=== PATIENT | male | born 1945 | race Hispanic/Latino ===

== ENCOUNTER 2024-08-07 05:40 | Observation (INO) | payer MEDICARE, OTHER ==
[2024-08-01 10:32] LABS: BASOPHILS # (AUTO) 0.01 K/uL (0.00-0.20); BASOPHILS % (AUTO) 0.2 % (0.0-5.0); EOSINOPHILS # (AUTO) 0.17 K/uL (0.00-0.70); HEMATOCRIT 43.9 % (42-54); IMMATURE GRANULOCYTE ABSOLUTE 0.02 K/uL (0-1); LYMPHOCYTES # (AUTO) 1.3 K/uL (1.0-4.8); LYMPHOCYTES % (AUTO) 22.8 % (21.0-51.0); MEAN CORPUSCULAR HEMOGLOBIN 29.7 pg (27.0-33.0); MEAN CORPUSCULAR HGB CONC 32.6 g/dL (32.0-36.0); MEAN CORPUSCULAR VOLUME 91.3 fL (79-99); MONOCYTES # (AUTO) 0.3 K/uL (0.1-1.0); MONOCYTES % (AUTO) 4.4 % (3.0-13.0); NEUTROPHILS # (AUTO) 3.9 K/uL (1.8-7.7); NEUTROPHILS % (AUTO) 69.2 % (40.0-77.0); PLATELET COUNT (AUTO) 198 K/uL (130-400); RED BLOOD CELL COUNT(AUTO) 4.81 MIL/uL (4.50-6.20); RED CELL DISTRIBUTION WIDTH 13.2 % (11.0-15.5); WHITE BLOOD COUNT (AUTO) 5.7 K/uL (4.8-10.8)
--- NOTE | 2024-08-01 10:33 | EKG ---
[facility] Test Date: 2024-08-01 Test Time: 10:25:18 Pat Name: BRITNI MARLOW Department: [facility] Room: Gender: M Mother Baby Rn: [id number] : 1945 Requested By: PEYTON VARGAS Order Number: [id number] Reading MD: Kishore Martinez Measurements Intervals [place] Rate: 54 P: -2 CA: 169 QRS: 25 QRSD: 124 T: 31 QT: 439 QTc: 417 Interpretive Statements Sinus rhythm IVCD, consider RBBB No previous ECG available for comparison Electronically Signed On 08-04-2024 18:29:07 CDT by Kishore Martinez Please click the below link to view image of tracing.
[2024-08-01 10:41] VITALS: BP 147/65; PULSE 60; RESP 18; TEMP 98.1
[2024-08-01 10:42] LABS: INR 1.06 (0.85-1.15); PROTHROMBIN TIME 11.2 SEC (9.6-11.6)
[2024-08-01 10:44] LABS: ALBUMIN 3.7 g/dL (3.5-5.0); CREATININE 0.9 mg/dL (0.5-1.3); PARTIAL THROMBOPLASTIN TIME 27.8 SEC (26.3-35.5); POTASSIUM 4.5 mmol/L (3.5-5.1)
--- NOTE | 2024-08-06 09:49 | NUR ---
report dr recinos reviewed ekg. ok to proceed
[~2024-08-07] VITALS: Ht 170.2 cm; Wt 105.7 kg
[2024-08-07] VITALS (26 sets, daily range): BP systolic 106–144; BP diastolic 50–85; PULSE 52–88; RESP 14–20; TEMP 97.2–98; O2SAT 96–98
[~2024-08-07 05:40] MED LIST: OMEP-420 PO
[2024-08-07] MEDS: LACTATED RINGERS 1000ML 1,000 ML IV ONE (06:35)
[2024-08-07] MEDS: ceFAZolin SODIUM 2 GM VIAL ONE (06:35)
[2024-08-07] MEDS: FAMOTIDINE 20MG VIAL IV ONE (06:38)
[2024-08-07] MEDS: acetaMINOPHEN 100 ML ONE (06:38)
[2024-08-07] MEDS ORDERED: ROPivacaine 0.5% 5MG/ML 30ML ONE (06:40)
[2024-08-07] MEDS ORDERED: ketaMINE 50MG/ML SYRINGE 50 MG/ML DISP.SYRIN ONE (06:40)
[2024-08-07] MEDS ORDERED: LIDOCAINE PF 100MG/5ML (2%) SYRINGE 5ML ONE (06:47)
[2024-08-07] MEDS ORDERED: FENTanyl CITRate PF 50 MCG/1 ML 2ML VIAL ONE (06:48)
[2024-08-07] MEDS ORDERED: proPOFol 10 MG/ML 20ML VIAL IV ONE (06:48)
[2024-08-07] MEDS ORDERED: rocuRONium bROMide 10MG/1ML 5ML VL ONE (06:48)
[2024-08-07] MEDS ORDERED: ondanSETRON 4MG INJ ONE (07:18)
[2024-08-07] MEDS ORDERED: dexaMETHasone SOD PHOSPHATE 10MG/ML 1ML VIAL ONE (07:18)
[2024-08-07] MEDS: TRANEXAMIC ACID 1000MG/10ML ONE (07:25)
[2024-08-07] MEDS ORDERED: GLYCOPYRROLATE 0.2 MG/ML 5 ML VIAL ONE (07:27)
[2024-08-07] MEDS ORDERED: NEOSTIGMINE METHYLSULFATE 1MG/ML IV ONE (07:28)
[2024-08-07] MEDS: 0.9%NACL 1000ML 1,000 ML IV SCH (07:30)
[2024-08-07] MEDS ORDERED: PoTASSium chl 10% ELIXIR 20MEQ 20 MEQ/15 ML UDCUP PO PRN (07:30)
[2024-08-07] MEDS ORDERED: ondanSETRON 4MG INJ IVP PRN (07:30)
[2024-08-07] MEDS ORDERED: FERROUS FUMARATE 324 MG TABLET PO PRN (07:30)
[2024-08-07] MEDS ORDERED: traMADol HCL 50 MG TABLET PO PRN (07:30)
[2024-08-07] MEDS ORDERED: PoTASSium chloRIDE 20MEQ ER 20 MEQ ERTAB PO PRN (07:30)
[2024-08-07] MEDS ORDERED: PoTASSium chloRIDE 20MEQ/100ML 100 ML IV PRN (07:30)
[2024-08-07] MEDS: ROPivacaine 0.5% 5MG/ML 30ML ONE (08:52)
[2024-08-07] MEDS: ketOROlac 30MG VIAL (30MG/ML) ONE (08:52)
--- NOTE | 2024-08-07 09:34 | OP ---
Operative Note: DATE OF PROCEDURE: 08/07/24 PREOPERATIVE DIAGNOSIS: Left knee osteoarthritis. POSTOPERATIVE DIAGNOSIS: Left knee osteoarthritis. PROCEDURE PERFORMED: Left knee total knee arthroplasty. SURGEON: Monica Galloway MD INTRUSION ANALYST: Henry Victor. ANESTHESIA: General with adductor canal block. ANESTHESIA: LUKAS Muniz. ESTIMATED BLOOD LOSS: 50cc. COMPLICATIONS: None. DRAINS: None. SPECIMENS REMOVED: resected bone. Not sent to pathology. IMPLANTS: [employer] II BCS size 7 Oxinium femur, size 6 tibial base plate, 35 mm patella, 11 mm polyethylene STATEMENT OF MEDICAL NECESSITY: The patient is a 78-year-old male who suffers from left knee osteoarthritis failing conservative management. After discussion of the risks, benefits, and alternatives with the patient, they voluntarily agreed to undergo the aforementioned procedure. DESCRIPTION OF PROCEDURE: Patient was properly identified in the preoperative holding area. Surgical site marking was verified and surgery consent reviewed. The patient was then taken to the operating room and placed in supine position o n the OR table. After induction of general anesthesia, preoperative antibiotics were given, all bony prominences were well-padded, and a well padded tourniquet was applied but not inflated at this time. The left lower extremity was then prepped and draped in usual sterile fashion. Surgical time out was done verifying correct surgery, side, site, and location to be performed. We then began the procedure by exsanguinating the limb using an Esmarch and inflating the tourniquet to 350 mmHg. At this point, we made an anterior midline incision using a 10 blade, coming down sharply the level of the fascia. Skin flaps were elevated medially and laterally. We then obtained a clean 10 blade and performed a standard medial parapatellar arthrotomy. We excised the infrapatellar fat pad. We performed our soft tissue releases off of the tibia. We transected the ACL and removed the anterior portion of the medial & lateral meniscus. We then brought the knee into hyperflexion with the patella everted. We used our entry reamer to enter the femoral canal. We then placed our intramedullary cutting guide for our distal femoral cutting block. We then performed our distal femoral osteotomy ensuring appropriate rotation and removed the bony wafer. We then removed these pins and block and then used jig 2 to size the distal femur with the after mentioned size found. We then placed our 5-in-1 cutting block in 4.5 degrees of external rotation and took our 5 cuts ensuring to protect the patellar tendon and the collateral ligaments. We then removed the cutting block and our bony fragments using a curved osteotome. We then placed our PCL retractor subluxating the tibia anteriorly. Using an extra medullary tibial cutting guide, we hung the block for our proximal tibial cut taking 2 mm off the more diseased portion. Prior to pinning this block in place, we ensured appropriate varus/valgus alignment and posterior slope similar to the [place] slope of the patient's knee. We then performed our proximal tibial osteotomy and removed the bony wafer using Bovie electrocautery to release any remaining soft tissue attachments. We then used our tibial sizing paddle and checked once more for varus & valgus alignment and found this to be appropriate. At this point, we pinned our tibial paddle in place. We then removed the PCL retractor and subluxated the tibia posteriorly while we placed our femoral trial component. We then finished preparing the notch with the reamer and box chisel. The notch portion of the trial femoral component was then placed. A posterior stabilized polyethylene, size 9 trial was placed. The knee was then taken through range of motion and found to have stable full range of motion. We then placed a bump under the ankle and everted the patella to perform our freehand cut of the undersurface the patella. We then sized our patella and reamed to the lug holes for this. We placed our trial patellar component and begin to take the knee through range of motion. The patella had mild lateral tracking that improved a for a small lateral release. At this point we began removing our trial components and punched the tibial keel prior to removing our tibial trial component. Final components were opened and cement was mixed on the back table while we injected local cocktail in the posterior capsule. We then thoroughly irrigated out the bone and dried the bony surfaces. We cemented our tibial component in place ensuring to remove excess cement and placed our trial polyethylene. We then cemented our femoral component in place once again taking time to ensure excess cement was removed leg was brought into full extension to help squeeze the excess cement from around the femoral component. We then brought the knee back in a flexion to remove this portion of the cement at this point we placed the ankle in a bump thoroughly irrigated off the patellar component and cemented our patellar component in standard fashion again removing excess cement. While we waited for the cement to cure, we thoroughly irrigated out the wound with normal saline. Once our cement had cured, we took the knee through a range of motion and found full and stable range of motion. We then elected to use the size 11 polyethylene and removed our trial polyethylene. We impacted our final polyethylene component in place in standard fashion and took the knee through a range of motion check once more. This was satisfactory so we began to repair the arthrotomy using #1 Vicryl in interrupted [id number] fashion. Subcutaneous tissue was repaired using 2-0 Vicryl. Running subcuticular 3-0 Monocryl stitch with Dermabond placed over this for the skin. We then applied a foam barrier dressing and a pressure dressing consisting of 4 x 4's fluffs and an Thony wrap. The tourniquet was then deflated. Patient was awakened from anesthesia, and they were taken to the recovery room in stable condition. MONICA GALLOWAY MD Aug 07, 2024 09:34
[2024-08-07] MEDS: ketOROlac 15MG/ML VIAL (15MG/ML) IV SCH (10:01)
[2024-08-07] MEDS: ketOROlac 15MG/ML VIAL (15MG/ML) ONE (10:03)
--- NOTE | 2024-08-07 10:18 | HMCIMG ---
LEFT KNEE RADIOGRAPHS - 2 VIEWS INDICATION: History provided states "right knee total arthroplasty" and images are labeled left by the forest fire officer. COMPARISON: None FINDINGS/IMPRESSION: AP, lateral views. History provided states "right knee total arthroplasty" and images are labeled left by the forest fire officer. Arthroplasty hardware is in appropriate alignment and overlying soft tissue swelling/air are expected after surgery without evidence for retained foreign body.
[2024-08-07] MEDS: PANTOPrazole 40 MG TAB DR PO SCH (11:57)
[2024-08-07] MEDS: polyETHYLene GLYCol 3350 17 GM POWD.PACK PO SCH (11:57)
[2024-08-07] MEDS: GABApentin 100 MG CAPSULE PO SCH (11:57)
[2024-08-07] MEDS: doCUSate SODIUM 100 MG CAP PO SCH (11:57)
[2024-08-07] MEDS: ceFAZolin SODIUM 2 GM VIAL IVP SCH (11:57)
--- NOTE | 2024-08-07 16:30 | NUR ---
DCP Pt awake, alert, oriented X3 lives with spouse Kim Reed [phone]. PCP is Silverio Choe from the [place]. Pt is independent prior to admission, does not have any medical equipment, and anticipates discharge is for home with . Addendum: 08/07/24 at 1633 by CAM TOBAR RN CM Amended: Links added.
--- NOTE | 2024-08-07 16:30 | NUR ---
ORTHO COORDINATOR: TEACHING REGARDING DVT AND PNEUMONIA PREVENTION, PAIN EXPECTATIONS, PAIN MANAGEMENT. PATIENT UP TO CHAIR, AT BEDSIDE. B SCD SLEEVES AND MACHINE IN ROOM. INCENTIVE SPIROMETER AT BEDSIDE. PATIENT RETURN DEMONSTRATED PROPER USE OF INCENTIVE SPIROMETER AND FOOT FLEXION/EXTENSION EXERCISES. PATIENT VERBALIZED TO PERFORM 10 TIMES EVERY HOUR. DISCUSSED DISCHARGED, PATIENT INTENDS TO GO HOME WITH PHYSICAL THERAPY. NEEDS WALKER AND 3-1- COMMODE. REVIEWED NUMERIC PAIN SCALE. PATIENT INSTRUCTED MUST REQUEST PAIN MEDICATION AND TO PROVIDE NUMERIC LEVEL AND TYPE OF PAIN. PAIN EXPECTATIONS REALISTIC. NO ADDITIONAL CONCERNS/QUESTIONS AT THIS TIME.
[2024-08-08] VITALS: BP 126/70; PULSE 64; RESP 20; TEMP 98.3
--- NOTE | 2024-08-08 02:47 | NUR ---
nurse note patient alert and oriented times 3. at bedside. plan of care discussed with them and they verbalized understanding. patient has some left knee pain tonight relieved by pain medications. He calls for assistance to go to the toilet when he needs to have a bowel movement. He ambulates with a walker and walks fast without complaining of pain. He voids on the urinal and toilet as well. Eriberto applied to right leg tonight. Patient has slept about 6 hours tonight. ice packs applied to left knee per protocol. Call light within reach, bed alarm on, 2 side rails up. will continue to monitor patient. will take the patient to the chair in the am as ordered.
[2024-08-08 04:00] VITALS: BP 126/74; PULSE 69; RESP 19; TEMP 98.3
[2024-08-08 04:43] LABS: HEMATOCRIT 35.8 % (42-54); MEAN CORPUSCULAR HEMOGLOBIN 30.2 pg (27.0-33.0); MEAN CORPUSCULAR HGB CONC 32.7 g/dL (32.0-36.0); MEAN CORPUSCULAR VOLUME 92.5 fL (79-99); RED BLOOD CELL COUNT(AUTO) 3.87 MIL/uL (4.50-6.20); RED CELL DISTRIBUTION WIDTH 13.1 % (11.0-15.5); WHITE BLOOD COUNT (AUTO) 10.3 K/uL (4.8-10.8)
[2024-08-08 04:55] LABS: CREATININE 0.9 mg/dL (0.5-1.3); POTASSIUM 3.9 mmol/L (3.5-5.1)
[2024-08-08] MEDS: CYCLOBENZAPRINE HCL 10 MG TABLET PO PRN (05:58)
[2024-08-08] MEDS: CALCIUM CARB 500MG PO PRN (05:58)
[2024-08-08] MEDS: HYDROcodone/APAP 5/325 1 TAB TABLET PO PRN (06:55)
[2024-08-08] MEDS ORDERED: ketOROlac 15MG/ML VIAL (15MG/ML) IV PRN (07:30)
[2024-08-08 08:00] VITALS: BP 127/52; PULSE 79; RESP 20; TEMP 97.8
[2024-08-08 08:45] VITALS: O2SAT 97
[2024-08-08] MEDS: ASPIRIN 325MG EC TAB PO SCH (08:49)
--- NOTE | 2024-08-08 09:20 | PN ---
Ortho postop day one. Patient is awake alert and oriented. is present. He has already seated out of bed enjoying his breakfast. Thony bandage has already been removed. The dressing is intact anteriorly. There is no footstool available in the room but I did instruct him that they will get her in for him later and he is to alternate extension and flexion while seated. Vital signs have been stable. He is afebrile. Laboratory results reviewed. Noted to have a drop in hemoglobin and hematocrit as expected after TKA. Patient is asymptomatic. We will continue to observe as necessary for protocol. Voiding on his own without difficulty and has already had a bowel movement this morning. In forced incentive spirometry and returned demonstration adequate. He currently has ice present to the operative site. He did ambulate yesterday with physical therapy down the crespo and in his room. Gastrocnemius a soft nontender. Negative Homans. DC plan for this patient is home health/PT. Assessment: Status post left total knee arthroplasty Asymptomatic acute postoperative blood loss anemia. Plan: Continue with Dr. Galloway's TKA protocol and discharge planning. Asymptomatic acute postoperative blood loss anemia addressed protocol as necessary Vitals/Labs Vital Signs Date Time Temp Pulse Resp B/P (MAP) Pulse Ox O2 Delivery O2 Flow Rate FiO2 08/08/24 08:00 97.9 79 20 127/52 97 Room Air 08/07/24 19:20 0 21 Laboratory Tests 08/08/24 04:35 Medications Current Medications Cefazolin Sodium 2 gm STK-MED ONCE .ROUTE Last administered on 08/07/24at 07:20; Start 08/07/24 at 06:09; Stop 08/07/24 at 06:09; Status DC Ketorolac Tromethamine 30 mg STK-MED ONCE .ROUTE Last administered on 08/07/24at 08:52; Start 08/07/24 at 06:33; Stop 08/07/24 at 06:33; Status DC Ropivacaine 150 mg STK-MED ONCE .ROUTE Last administered on 08/07/24at 08:52; Start 08/07/24 at 06:33; Stop 08/07/24 at 06:33; Status DC Lactated Ringer's 1,000 ml @ As Directed STK-MED ONCE IV Last administered on 08/07/24at 06:35; Start 08/07/24 at 06:34; Stop 08/07/24 at 06:34; Status DC Acetaminophen 100 ml @ As Directed STK-MED ONCE .ROUTE; Start 08/07/24 at 06:38; Stop 08/07/24 at 06:38; Status DC Famotidine 20 mg STK-MED ONCE IV; Start 08/07/24 at 06:38; Stop 08/07/24 at 06:38; Status DC Ropivacaine 150 mg STK-MED ONCE .ROUTE; Start 08/07/24 at 06:40; Stop 08/07/24 at 06:40; Status DC Ketamine HCl 50 mg STK-MED ONCE .ROUTE; Start 08/07/24 at 06:40; Stop 08/07/24 at 06:40; Status DC Lidocaine HCl 100 mg STK-MED ONCE .ROUTE; Start 08/07/24 at 06:47; Stop 08/07/24 at 06:48; Status DC Propofol 200 mg STK-MED ONCE IV; Start 08/07/24 at 06:48; Stop 08/07/24 at 06:48; Status DC Rocuronium [place] 50 mg STK-MED ONCE .ROUTE; Start 08/07/24 at 06:48; Stop 08/07/24 at 06:48; Status DC Fentanyl Citrate 100 mcg STK-MED ONCE .ROUTE; Start 08/07/24 at 06:48; Stop 08/07/24 at 06:48; Status DC Tranexamic Acid 1,000 mg STK-MED ONCE .ROUTE Last administered on 08/07/24at 07:25; Start 08/07/24 at 06:59; Stop 08/07/24 at 07:00; Status DC Ondansetron HCl 4 mg STK-MED ONCE .ROUTE; Start 08/07/24 at 07:18; Stop 08/07/24 at 07:19; Status DC Dexamethasone Sodium Phosphate 10 mg STK-MED ONCE .ROUTE; Start 08/07/24 at 07:18; Stop 08/07/24 at 07:19; Status DC Glycopyrrolate 1 mg STK-MED ONCE .ROUTE; Start 08/07/24 at 07:27; Stop 08/07/24 at 07:27; Status DC Neostigmine Methylsulfate 10 mg STK-MED ONCE IV; Start 08/07/24 at 07:28; Stop 08/07/24 at 07:28; Status DC Sodium Chloride 1,000 ml @ 100 mls/hr Q10H IV Last administered on 08/07/24at 20:16; Start 08/07/24 at 07:30; Stop 08/08/24 at 03:27; Status DC Polyethylene Glycol 17 gm DAILY PO Last administered on 08/08/24at 08:50; Start 08/07/24 at 09:00; Stop 09/06/24 at 08:59 Bisacodyl 10 mg DAILY PRN RC; Start 08/10/24 at 07:30; Stop 09/09/24 at 07:29 Ketorolac Tromethamine 15 mg Q6H PRN IV; Start 08/08/24 at 07:30; Stop 08/13/24 at 07:29 Ferrous Fumarate 324 mg DAILY PRN PO; Start 08/07/24 at 07:30; Stop 09/06/24 at 07:29 Ondansetron HCl 4 mg Q6H PRN IVP; Start 08/07/24 at 07:30; Stop 09/06/24 at 07:29 Calcium Carbonate 500 mg Q12H PRN PO Last administered on 08/08/24at 05:58; Start 08/07/24 at 07:30; Stop 09/06/24 at 07:29 Cefazolin Sodium 2 gm Q8H IVP Last administered on 08/07/24at 20:16; Start 08/07/24 at 12:30; Stop 08/07/24 at 20:31; Status DC Cyclobenzaprine HCl 5 mg Q8H PRN PO Last administered on 08/08/24at 05:58; Start 08/07/24 at 07:30; Stop 09/06/24 at 07:29 Gabapentin 100 mg TID PO Last administered on 08/08/24at 08:50; Start 08/07/24 at 09:00; Stop 09/06/24 at 08:59 Aspirin 325 mg DAILY PO Last administered on 08/08/24at 08:49; Start 08/08/24 at 09:00; Stop 09/07/24 at 08:59 Ketorolac Tromethamine 15 mg Q8H IV Last administered on 08/07/24at 20:17; Start 08/07/24 at 07:30; Stop 08/07/24 at 23:31; Status DC Docusate Sodium 100 mg BID PO Last administered on 08/08/24at 08:49; Start 08/07/24 at 09:00; Stop 09/06/24 at 08:59 Potassium Chloride 100 ml @ 100 mls/hr AD PRN IV; Start 08/07/24 at 07:30; Stop 09/06/24 at 07:29 Potassium Chloride 20 meq AD PRN PO; Start 08/07/24 at 07:30; Stop 09/06/24 at 07:29 Potassium Chloride 20 meq AD PRN PO; Start 08/07/24 at 07:30; Stop 09/06/24 at 07:29 Tramadol HCl 50 mg Q6H PRN PO; Start 08/07/24 at 07:30; Stop 08/12/24 at 07:29 Acetaminophen/ Hydrocodone Bitart Q4H PRN PO Last administered on 08/08/24at 06:55; Start 08/07/24 at 07:30; Stop 08/12/24 at 07:29 Pantoprazole Sodium 40 mg DAILY PO Last administered on 08/08/24at 08:49; Start 08/07/24 at 09:00; Stop 09/06/24 at 08:59 Ketorolac Tromethamine 15 mg STK-MED ONCE .ROUTE; Start 08/07/24 at 09:59; Stop 08/07/24 at 09:59; Status BHAKTI POWELL NP Aug 08, 2024 09:20
[2024-08-08 11:58] VITALS: BP 130/64; PULSE 68; RESP 18; TEMP 99.3
[2024-08-08] MEDS ORDERED: HYDR-4060 PO (15:12)
[2024-08-08] MEDS ORDERED: ASPI-891 PO (15:12)
[2024-08-08] MEDS ORDERED: CYCL-309 PO (15:12)
[2024-08-08] MEDS ORDERED: DOCU-116 PO (15:12)
[2024-08-08] MEDS ORDERED: GABA100C PO (15:12)
--- NOTE | 2024-08-08 15:16 | DS ---
Discharge Summary Hospital Course Summary: The patient was admitted to the hospital postoperatively on 08/07/24 after undergoing left total knee arthroplasty. They did well with routine postoperative pain control. They worked well with physical therapy. They developed some acute blood loss anemia but remained asymptomatic. The hospital course was otherwise uncomplicated. They were subsequently able to be discharged on postoperative day 1 once discharge arrangements were made with home health physical therapy. Domestic Maid(s): None Procedure(s): Left total knee arthroplasty, 08/07/2024 Assessment/Plan: ASSESSMENT: Status post left total knee arthroplasty doing well Acute blood loss anemia asymptomatic PLAN: See discharge instructions Discharge Instructions: Begin working with Home Health physical therapy. Dressing may be removed 08/09/2024 and left open to air. Showers ok allowing soap and water to run over the wound. Pat dry. Do not submerge wound in tub/pool. Do not apply ointments. Do not apply Betadine. Do not apply peroxide. Ice packs to decrease pain/swelling. Prescriptions have been sent to the pharmacy: *Kathleen 5/325mg 1-2 tab every 6 hours as needed for severe pain. (please call for refills) Cyclobenzaprine 5mg 1 tab every 8 hours as needed for muscle spasm pain. Gabapentin 100mg 1 tab every 8 hours (may discontinue if drowsy). Colace 100mg 1 tab orally twice a day as needed for constipation. Aspirin 325mg twice a day for 30 days to prevent blood clots. Call for a follow-up appointment in 2-3 weeks at [facility]. Home Medications: Active Scripts Hydrocodone/Acetaminophen (Hydrocodon-Acetaminophen 5-325) 5 Mg-325 Mg Tablet, 1-2 TAB PO Q4H PRN for MODERATE/SEVERE PAIN LEVEL, #56 TAB 0 Refills Prov:PEYTON VARGAS MD 08/08/24 Reported Medications Omeprazole (Omeprazole) 20 Mg Tab.rap, 20 MG PO AM 08/01/24 PEYTON VARGAS MD Aug 08, 2024 15:16
--- NOTE | 2024-08-08 15:45 | NUR ---
ORTHO COORDINATOR: REINFORCED TEACHING. PATIENT IN BED, AT BEDSIDE. ENCOURAGED PATIENT TO CONTINUE INCENTIVE SPIROMETRY, FOOT FLEXION/EXTENSION EXERCISES AND MEDICATING PRIOR TO PHYSICAL THERAPY ONCE DISCHARGED. PATIENT AND VERBALIZED UNDERSTANDING. WALKER DELIVERED TO ROOM, PATIENTS REPORTS PURCHASING A TOILET EXTENSION DEVICE. NO ADDITIONAL QUESTIONS/CONCERNS AT THIS TIME.
--- NOTE | 2024-08-08 18:00 | NUR ---
report given to samina ulloa from [facility].
--- NOTE | 2024-08-08 18:15 | NUR ---
DC NOTE DC INSTRUCTIONS AND FOLLOW UP APPOINTMENT GIVEN TO PT AND SPOUSE ALONG WITH [facility] OPTIFOAM IN PLACED PER DR. VARGAS'S INSTRUCTIONS TO BE REMOVE 08/09/24. NO S/S OF INFECTION AT INCISION SITE. PIV REMOVED, CATHETER INTACT, DENIES ANY PAIN OR DISCOMFORT AT THIS TIME. PT IS WHEELED DOWNSTAIRS WITH HEMODIALYSIS PATIENT CARE SPECIALIST INTO VIA PRIVATE CAR. NO FURTHER COMMENTS OR CONCERN AT THIS TIME.
[2024-08-10] MEDS ORDERED: BisaCODYL 10 MG SUPP.RECT RC PRN (07:30)
== END 2024-08-08 18:15 | disposition home or self-care (01) ==
LOC: DAH 05:40 → DAHIP 05:41 → 4DH 10:45
PROVIDERS: ADMIT Student in an Organized Health Care Education/Training Program; ATTEND Student in an Organized Health Care Education/Training Program
DX: M17.12 Unilateral primary osteoarthritis, left knee (principal); G89.18 Other acute postprocedural pain; D62 Acute posthemorrhagic anemia; K21.9 Gastro-esophageal reflux disease without esophagitis; R26.89 Other abnormalities of gait and mobility; E78.5 Hyperlipidemia, unspecified; Z98.890 Other specified postprocedural states; Z79.899 Other long term (current) drug therapy
CPT/HCPCS: 82040; 80048 ×2; 85025; 85610; 85730; 84134; 86140; 36415 ×2; 93005; 87641; 64447; 27447; 96376; 96365; 96366 ×2; 96375; 73560; 97161; 97116 ×3; 85027; 97530 ×2; G0378 ×30; A4663; J7120; J3490 ×5; J3010; J1100; J2003; J2704; J2405; J1885 ×4; J2710; J2795 ×2; J0690 ×3; C1713 ×2; C1776 ×2; A4649 ×2; A4930 ×3; A6255; A5120; A4215; A4223; A4222; A4221

== ENCOUNTER 2025-02-26 08:10 | Observation (INO) | payer OTHER ==
[2025-02-24 10:47] VITALS: BP 132/66; PULSE 54; RESP 13; TEMP 98.1
--- NOTE | 2025-02-24 11:17 | NUR ---
RE: IS INITIAL IS INITIAL TEACHING DONE BY RT RUDI DURING PREOP.
--- NOTE | 2025-02-24 12:20 | EKG ---
[facility] Test Date: 2025-02-24 Test Time: 10:29:11 Pat Name: BRITNI MARLOW Department: [facility] Room: Gender: M Acidizer: [id number] : 1945 Requested By: PEYTON VARGAS Order Number: [id number] Reading MD: Antonia Callahan Measurements Intervals [place] Rate: 51 P: 17 ME: 185 QRS: -1 QRSD: 130 T: 45 QT: 451 QTc: 414 Interpretive Statements Sinus rhythm Right bundle branch block Compared to ECG 08/01/2024 10:25:18 No significant changes Electronically Signed On 02-25-2025 16:11:15 CDT by Antonia Callahan Please click the below link to view image of tracing.
--- NOTE | 2025-02-25 10:25 | NUR ---
REPORT DR HORN REVIEWED EKG. OK TO PROCEED
[~2025-02-26] VITALS: Ht 170.2 cm; Wt 106.6 kg
[2025-02-26] VITALS (20 sets, daily range): BP systolic 120–142; BP diastolic 64–78; PULSE 65–84; RESP 14–20; TEMP 97.5–98.2; O2SAT 94–96
[2025-02-26] MEDS: LACTATED RINGERS 1000ML 1,000 ML IV ONE (09:06)
[2025-02-26] MEDS ORDERED: LIDOCAINE HCL MPF 1% 5ML VIAL ONE (10:03)
[2025-02-26] MEDS ORDERED: NEOSTIGMINE METHYLSULFATE 1MG/ML IV ONE (10:04)
[2025-02-26] MEDS ORDERED: MIDAZOLAM HCL 1 MG/ML 2ML VIAL ONE (10:04)
[2025-02-26] MEDS ORDERED: GLYCOPYRROLATE 0.2 MG/ML 5 ML VIAL ONE (10:04)
[2025-02-26] MEDS: TRANEXAMIC ACID 1000MG/10ML ONE (11:10)
[2025-02-26] MEDS: TRANEXAMIC ACID 1000MG/10ML IV ONE ×2 (13:15)
--- NOTE | 2025-02-26 13:17 | OP ---
Operative Note: DATE OF PROCEDURE: 02/26/25 PREOPERATIVE DIAGNOSIS: Right knee osteoarthritis. POSTOPERATIVE DIAGNOSIS: Right knee osteoarthritis. PROCEDURE PERFORMED: Right knee total knee arthroplasty. SURGEON: Monica Galloway MD ALMOND PAN FINISHER: Henry Victor and Marcy Posey. ANESTHESIA: General with adductor canal block. ANESTHESIA: LUKAS Phelps. ESTIMATED BLOOD LOSS: 50cc. COMPLICATIONS: None. DRAINS: None. SPECIMENS REMOVED: resected bone. Not sent to pathology. IMPLANTS: [employer] II BCS size 7 Oxinium femur, size 5 tibial base plate, 35 mm patella, 10 mm polyethylene STATEMENT OF MEDICAL NECESSITY: The patient is a 79-year-old male who suffers from right knee osteoarthritis failing conservative management. After discussion of the risks, benefits, and alternatives with the patient, they voluntarily agreed to undergo the aforementioned procedure. DESCRIPTION OF PROCEDURE: Patient was properly identified in the preoperative holding area. Surgical site marking was verified and surgery consent reviewed. The patient was then taken to the operating room and placed in supine position on the OR table. After induction of general anesthesia, preoperative antibiotics were given, all bony prominences were well-padded, and a well padded tourniquet was applied but not inflated at this time. The right lower extremity was then prepped and draped in usual sterile fashion. Surgical time out was done verifying correct surgery, side, site, and location to be performed. We then began the procedure by exsanguinating the limb using an Esmarch and inflating the tourniquet to 350 mmHg. At this point, we made an anterior midline incision using a 10 blade, coming down sharply the level of the fascia. Skin flaps were elevated medially and laterally. We then obtained a clean 10 blade and performed a standard medial parapatellar arthrotomy. We excised the infrapatellar fat pad. We performed our soft tissue releases off of the tibia. We transected the ACL and removed the anterior portion of the medial & lateral meniscus. We then brought the knee into hyperflexion with the patella everted. We used our entry reamer to enter the femoral canal. We then placed our intramedullary cutting guide for our distal femoral cutting block. We then performed our distal femoral osteotomy ensuring appropriate rotation and removed the bony wafer. We then removed these pins and block and then used jig 2 to size the distal femur with the after mentioned size found. We then placed our 5-in-1 cutting block in 4 degrees of external rotation and took our 5 cuts ensuring to protect the patellar tendon and the collateral ligaments. We then removed the cutting block and our bony fragments using a curved osteotome. We then placed our PCL retractor subluxating the tibia anteriorly. Using an extra medullary tibial cutting guide, we hung the block for our proximal tibial cut taking 2 mm off the more diseased portion. Prior to pinning this block in place, we ensured appropriate varus/valgus alignment and posterior slope similar to the [place] slope of the patient's knee. We then performed our proximal ti bial osteotomy and removed the bony wafer using Bovie electrocautery to release any remaining soft tissue attachments. We then used our tibial sizing paddle and checked once more for varus & valgus alignment and found this to be appropriate. At this point, we pinned our tibial paddle in place. We then removed the PCL retractor and subluxated the tibia posteriorly while we placed our femoral trial component. We then finished preparing the notch with the reamer and box chisel. The notch portion of the trial femoral component was then placed. A posterior stabilized polyethylene, size 9 trial was placed. This was increased up to a size 10 due to laxity with varus and valgus stressing. The knee was then taken through range of motion and found to have stable full range of motion. We then placed a bump under the ankle and everted the patella to perform our freehand cut of the undersurface the patella. We then sized our patella and reamed to the lug holes for this. We placed our trial patellar component and begin to take the knee through range of motion. The patella had appropriate tracking. At this point we began removing our trial components and punched the tibial keel prior to removing our tibial trial component. Final components were opened and cement was mixed on the back table while we injected local cocktail in the posterior capsule. We then thoroughly irrigated out the bone and dried the bony surfaces. We cemented our tibial component in place ensuring to remove excess cement and placed our trial polyethylene. We then cemented our femoral component in place once again taking time to ensure excess cement was removed leg was brought into full extension to help squeeze the excess cement from around the femoral component. We then brought the knee back in a flexion to remove this portion of the cement at this point we placed the ankle in a bump thoroughly irrigated off the patellar component and cemented our patellar component in standard fashion again removing excess cement. While we waited for the cement to cure, we thoroughly irrigated out the wound with normal saline. Once our cement had cured, we took the knee through a range of motion and found full and stable range of motion. We then elected to use the size 10 polyethylene and removed our trial polyethylene. We impacted our final polyethylene component in place in standard fashion and took the knee through a range of motion check once more. This was satisfactory so we began to repair the arthrotomy using #1 Vicryl in interrupted [id number] fashion. Subcutaneous tissue was repaired using 2-0 Vicryl. Running subcuticular 3-0 Monocryl stitch with Dermabond placed over this for the skin. We then applied a foam barrier dressing and a pressure dressing consisting of 4 x 4's fluffs and an Thony wrap. The tourniquet was then deflated. Patient was awakened from anesthesia, and they were taken to the recovery room in stable condition. MONICA GALLOWAY MD Feb 26, 2025 13:17
[2025-02-26] MEDS ORDERED: PoTASSium chloRIDE 20MEQ ER 20 MEQ ERTAB PO PRN (13:30)
[2025-02-26] MEDS: 0.9%NACL 1000ML 1,000 ML IV SCH (13:30)
[2025-02-26] MEDS ORDERED: PoTASSium chl 10% ELIXIR 20MEQ 20 MEQ/15 ML UDCUP PO PRN (13:30)
[2025-02-26] MEDS ORDERED: CALCIUM CARB 500MG PO PRN (13:30)
[2025-02-26] MEDS ORDERED: FERROUS FUMARATE 324 MG TABLET PO PRN (13:30)
[2025-02-26] MEDS ORDERED: HYDROcodone/APAP 5/325 1 TAB TABLET PO PRN (13:30)
--- NOTE | 2025-02-26 14:40 | NUR ---
UNIT ARRIVAL RECEIVED PATIENT FROM PACU NURSE. PATIENT RESTING COMFORTABLY. NO SIGNS OF PAIN OR DISCOMFORT NOTED. POST OP VITALS STARTED. PT AND RT NOTIFIED. SCD'S APPLIED. INCISION TO RIGHT KNEE COVERED WITH 4X4 AND OPTIFOAM. AMIE BANDAGE IN PLACE NO SWELLING NOTED. VITALS STABLE, SPO2 99% VIA 2L NC. AT BEDSIDE. BED LOCKED AND IN LOWEST POSITION. CALL LIGHT WITHIN REACH.
--- NOTE | 2025-02-26 15:05 | HMCIMG ---
Comparison: August 07, 2024 Findings: Intact arthroplasty is noted. There is no abnormal lucency surrounding the hardware which would suggest any loosening. If there is high suspicion, consider a bone scan to exclude septic or aseptic loosening. Normal alignment is maintained. Impression: Evidence of right knee replacement. /[place]
--- NOTE | 2025-02-26 15:30 | NUR ---
ORTHO COORDINATOR: TEACHING REGARDING DVT AND PNEUMONIA PREVENTION, PAIN EXPECTATIONS AND PAIN MANAGEMENT. PATIENT IN BED, SPOUSE AT BEDSIDE. B SCD SLEEVES IN PLACE AND FUNCTIONING. INCENTIVE SPIROMETER AT BEDSIDE, PENDING RESPIRATORY DEMONSTRATION. PATIENT VERBALIZED PROPER FREQUENCY OF INCENTIVE SPIROMETER USE. PATIENT HAD L TKA IN JULY OF 2024. PAIN EXPECTATIONS REALISTIC. REVIEWED PAIN MANAGEMENT STRATEGY. PATIENT INSTRUCTED TO PERFORM SELF PAIN EVALUATIONS AT THE MINIMUM EVERY FOUR HOURS. PATIENT CURRENT PAIN IS 7/10 SORENESS TO TOP OF KNEE. PATIENT RETURN DEMONSTRATED PROPER FOOT FLEXION AND EXTENSION EXERCISES, RATIONALE PROVIDED. PATIENT INTENDS TO DISCHARGE HOME WITH HOME HEALTH PHYSICAL THERAPY. SET EXPECTATION FOR PATIENT TO SHOWER TOMORROW, RATIONALE PROVIDED. PATIENT AND SPOUSE VERBALIZED UNDERSTANDING TO ALL INSTRUCTIONS. NO ADDITIONAL QUESTIONS OR CONCERNS AT THIS TIME. 1545 REPORT TO PRIMARY NURSE REGARDING PAIN OF 7/10. PRIMARY NURSE ACKNOWLEDGED COMMUNICATION.
--- NOTE | 2025-02-26 16:17 | NUR ---
[facility] CM MET WITH PT AND SPOUSE THIS AFTERNOON, INITIAL ASSESSMENT DONE. PATIENT IS INDEPENDENT PRIOR TO SURGERY, LIVES AT HOME WITH HIS AND 3 GRANDCHILDREN LIVES WITH THEM AT HOME. 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 DENIES ANY OTHER EQUIPMENT/SERVICES. FEELS SAFE TO GO BACK HOME, STILL DRIVE, ABLE TO ASSIST WITH TRANSPORTATION AND NEEDS NECESSARY. DISCUSSED MD RECOMMENDATIONS FOR HOME W/HH FOR PT, PT AGREEABLE, CONSENT SIGNED [facility] FOR [facility], PT VERBALIZED IF POSSIBLE REQUESTING SAME HOME HEALTH COMPANY THAT WENT LAST TIME HE HAD SURGERY HERE, INFORMED PT WILL GIVE [facility] HEADS UP PT'S REQUEST, LAST RECORD SAYS [facility], IT WILL STILL BE UP TO THE [place] TO [place] AND ASSIGN HH, PT VERBALIZED UNDERSTANDING. [facility] HOME W/HH ONCE APPROVED. CM TO CONTINUE TO FOLLOW UP. Addendum: 02/26/25 at 1620 by EMMA ALEXANDRA LVN CM Amended: Links added.
[2025-02-26] MEDS: HYDROcodone/APAP 5/325 1 TAB TABLET PO PRN (16:49)
--- NOTE | 2025-02-26 21:30 | NUR ---
ASSISTED PATIENT STAND AT BEDSIDE WITH WALKER AND NO COMPLICATIONS NOTED. PATIENT TOLERATED WELL. PATIENT ABLE TO VOID 200ML OF URINE. PATIENT PLACE BACK TO BED WITH NO COMPLICATIONS.
[2025-02-27] VITALS: BP 124/68; PULSE 68; RESP 20; TEMP 97.8
[2025-02-27] MEDS: HYDROcodone/APAP 5/325 1 TAB TABLET PO PRN (01:08)
[2025-02-27 04:00] VITALS: BP 119/75; PULSE 68; RESP 20; TEMP 97.9
[2025-02-27 05:07] LABS: NUCLEATED RED BLOOD CELLS 0.0 % (0.0-0.19); PLATELET COUNT (AUTO) 168.0 K/uL (130-400); RED BLOOD CELL COUNT(AUTO) 4.02 MIL/uL (4.50-6.20); RED CELL DISTRIBUTION WIDTH 13.6 % (11.0-15.5); WHITE BLOOD COUNT (AUTO) 11.0 K/uL (4.8-10.8)
[2025-02-27 05:24] LABS: CREATININE 0.9 mg/dL (0.5-1.3); GLOMERULAR FILTR. RATE CALC 88.0 mL/min (>90); GLUCOSE,RANDOM 112.0 mg/dL (70-105); SODIUM SERUM 141.0 mmol/L (136-145); UREA NITROGEN, BLOOD 17.0 mg/dL (7-18)
[2025-02-27 07:50] VITALS: BP 137/68; PULSE 60; RESP 19; TEMP 98
--- NOTE | 2025-02-27 08:07 | PN ---
Ortho postop day one. This morning patient is awake alert and oriented. Reporting adequate pain control. He is out of bed sitting in a chair has already enjoying his breakfast. We have provided a footstool to alternate extension and flexion. There is ice present to the op-site and the dressing is intact. Gastrocnemius soft nontender negative Homans. Operative findings discussed with the patient. Laboratory results reviewed. Noted to have a drop in hemoglobin and hematocrit as expected after TKA. Patient is currently asymptomatic. We will address per protocol as necessary. Voiding on his own without difficulty yet to pass gas. Reinforced incentive spirometry. Ambulated yesterday about 20 ft and is pending further physical therapy this morning. Anticipated discharge goal is home health/PT. Assessment: Status post right TKA. Asymptomatic acute postoperative blood loss anemia. Plan: Continue with Dr. Galloway's TKA protocol and discharge planning. Asymptomatic acute postoperative blood loss anemia addressed with the protocol as necessary Vitals/Labs Vital Signs Date Time Temp Pulse Resp B/P (MAP) Pulse Ox O2 Delivery O2 Flow Rate FiO2 02/27/25 07:50 98.1 60 19 137/68 97 Room Air 02/26/25 20:00 0 21 Laboratory Tests 02/27/25 04:41 Medications Current Medications Cefazolin Sodium 2 gm STK-MED ONCE .ROUTE Last administered on 02/26/25at 11:05; Start 02/26/25 at 08:19; Stop 02/26/25 at 08:19; Status DC Lactated Ringer's 1,000 ml @ As Directed STK-MED ONCE IV Last administered on 02/26/25at 09:06; Start 02/26/25 at 08:19; Stop 02/26/25 at 08:19; Status DC Lidocaine HCl 5 ml STK-MED ONCE .ROUTE; Start 02/26/25 at 10:03; Stop 02/26/25 at 10:03; Status DC Dexamethasone Sodium Phosphate 4 mg STK-MED ONCE .ROUTE; Start 02/26/25 at 10:03; Stop 02/26/25 at 10:03; Status DC Phenylephrine HCl 10 mg STK-MED ONCE IV; Start 02/26/25 at 10:03; Stop 02/26/25 at 10:03; Status DC Ondansetron HCl 4 mg STK-MED ONCE .ROUTE; Start 02/26/25 at 10:03; Stop 02/26/25 at 10:03; Status DC Glycopyrrolate 1 mg STK-MED ONCE .ROUTE; Start 02/26/25 at 10:04; Stop 02/26/25 at 10:04; Status DC Midazolam HCl 2 mg STK-MED ONCE .ROUTE; Start 02/26/25 at 10:04; Stop 02/26/25 at 10:04; Status DC Propofol 200 mg STK-MED ONCE IV; Start 02/26/25 at 10:04; Stop 02/26/25 at 10:04; Status DC Neostigmine Methylsulfate 10 mg STK-MED ONCE IV; Start 02/26/25 at 10:04; Stop 02/26/25 at 10:04; Status DC Rocuronium Rock 50 mg STK-MED ONCE .ROUTE; Start 02/26/25 at 10:04; Stop 02/26/25 at 10:04; Status DC Fentanyl Citrate 100 mcg STK-MED ONCE .ROUTE; Start 02/26/25 at 10:04; Stop 02/26/25 at 10:04; Status DC Ropivacaine 150 mg STK-MED ONCE .ROUTE; Start 02/26/25 at 10:07; Stop 02/26/25 at 10:07; Status DC Acetaminophen 100 ml @ As Directed STK-MED ONCE .ROUTE; Start 02/26/25 at 10:07; Stop 02/26/25 at 10:07; Status DC Tranexamic Acid 1,000 mg STK-MED ONCE .ROUTE Last administered on 02/26/25at 11:10; Start 02/26/25 at 10:27; Stop 02/26/25 at 10:27; Status DC Ketorolac Tromethamine 30 mg STK-MED ONCE .ROUTE Last administered on 02/26/25at 12:20; Start 02/26/25 at 10:27; Stop 02/26/25 at 10:27; Status DC Ropivacaine 150 mg STK-MED ONCE .ROUTE Last administered on 02/26/25at 12:20; Start 02/26/25 at 10:28; Stop 02/26/25 at 10:28; Status DC Ephedrine Sulfate 50 mg STK-MED ONCE .ROUTE; Start 02/26/25 at 11:20; Stop 02/26/25 at 11:20; Status DC Tranexamic Acid 1,000 mg STK-MED ONCE IV; Start 02/26/25 at 00:00; Stop 02/26/25 at 00:01; Status Cancel Rocuronium Rock 50 mg STK-MED ONCE .ROUTE; Start 02/26/25 at 11:54; Stop 02/26/25 at 11:54; Status DC Fentanyl Citrate 100 mcg STK-MED ONCE .ROUTE; Start 02/26/25 at 12:54; Stop 02/26/25 at 12:55; Status DC Sodium Chloride 1,000 ml @ 100 mls/hr Q10H IV Last administered on 02/26/25at 13:30; Start 02/26/25 at 13:30; Stop 02/27/25 at 13:29 Polyethylene Glycol 17 gm DAILY PO; Start 02/27/25 at 09:00; Stop 03/29/25 at 08:59 Bisacodyl 10 mg DAILY PRN RC; Start 03/01/25 at 13:30; Stop 03/31/25 at 13:29 Ketorolac Tromethamine 15 mg Q6H PRN IV; Start 02/27/25 at 13:30; Stop 02/26/25 at 21:16; Status DC Ferrous Fumarate 324 mg DAILY PRN PO; Start 02/26/25 at 13:30; Stop 03/28/25 at 13:29 Ondansetron HCl 4 mg Q6H PRN IVP; Start 02/26/25 at 13:30; Stop 03/28/25 at 13:29 Calcium Carbonate 500 mg Q12H PRN PO; Start 02/26/25 at 13:30; Stop 03/28/25 at 13:29 Cefazolin Sodium 2 gm Q8H IVP Last administered on 02/27/25at 02:23; Start 02/26/25 at 18:30; Stop 02/27/25 at 02:31; Status DC Cyclobenzaprine HCl 5 mg Q8H PRN PO; Start 02/26/25 at 13:30; Stop 03/28/25 at 13:29 Gabapentin 100 mg TID PO Last administered on 02/26/25at 21:18; Start 02/26/25 at 14:00; Stop 03/28/25 at 13:59 Aspirin 325 mg DAILY PO; Start 02/27/25 at 09:00; Stop 03/29/25 at 08:59 Ketorolac Tromethamine 15 mg Q8H IV; Start 02/26/25 at 13:30; Stop 02/26/25 at 15:11; Status DC Docusate Sodium 100 mg BID PO Last administered on 02/26/25at 21:17; Start 02/26/25 at 21:00; Stop 03/28/25 at 20:59 Potassium Chloride 100 ml @ 100 mls/hr AD PRN IV; Start 02/26/25 at 13:30; Stop 03/28/25 at 13:29 Potassium Chloride 20 meq AD PRN PO; Start 02/26/25 at 13:30; Stop 03/28/25 at 13:29 Potassium Chloride 20 meq AD PRN PO; Start 02/26/25 at 13:30; Stop 03/28/25 at 13:29 Tramadol HCl 50 mg Q6H PRN PO Last administered on 02/27/25at 00:10; Start 02/26/25 at 13:30; Stop 03/03/25 at 13:29 Acetaminophen/ Hydrocodone Bitart Q4H PRN PO; Start 02/26/25 at 13:30; Stop 02/26/25 at 13:20; Status DC Pantoprazole Sodium 40 mg DAILY PO; Start 02/27/25 at 09:00; Stop 03/29/25 at 08:59 Acetaminophen/ Hydrocodone Bitart 1 tab Q4H PRN PO Last administered on 02/27/25at 01:08; Start 02/26/25 at 13:30; Stop 03/03/25 at 13:29 Acetaminophen/ Hydrocodone Bitart 2 tab Q4H PRN PO Last administered on 02/26/25at 21:18; Start 02/26/25 at 13:30; Stop 03/03/25 at 13:29 Tranexamic Acid 1,000 mg STK-MED ONCE IV Last administered on 02/26/25at 13:15; Start 02/26/25 at 13:15; Stop 02/26/25 at 13:44; Status DC Ketorolac Tromethamine 15 mg Q6H PRN IV Last administered on 02/26/25at 21:19; Start 02/26/25 at 21:30; Stop 03/03/25 at 21:29 BHAKTI FERMIN [facility] Feb 27, 2025 08:06
[2025-02-27] MEDS: ASPIRIN 325MG EC TAB PO SCH (08:21)
[2025-02-27 09:03] VITALS: O2SAT 97
[2025-02-27 11:47] VITALS: BP 109/62; PULSE 72; RESP 18; TEMP 98.3
[2025-02-27] MEDS: CYCLOBENZAPRINE HCL 10 MG TABLET PO PRN (12:31)
[2025-02-27] MEDS ORDERED: GABA100C PO (13:26)
[2025-02-27] MEDS ORDERED: DOCU-116 PO (13:26)
[2025-02-27] MEDS ORDERED: CYCL-309 PO (13:26)
[2025-02-27] MEDS ORDERED: HYDR-4060 PO (13:26)
[2025-02-27] MEDS ORDERED: ASPI-891 PO (13:26)
--- NOTE | 2025-02-27 15:00 | NUR ---
ORTHO COORDINATOR: REINFORCED TEACHING. PATIENT IN CHAIR, DRESSED IN STREET CLOTHES. SPOUSE AT BEDSIDE. DRESSING TO RIGHT KNEE CLEAN, DRY AND INTACT. PATIENT REPORTS PASSING GAS. PATIENT APPROVED FOR HOME HEALTH, NEXT STEPS REVIEWED. PATIENT INSTRUCTED TO REMOVE DRESSING TOMORROW, INSTRUCTIONS PROVIDED. PATIENT AND VERBALIZED UNDERSTANDING. PATIENT ENCOURAGED TO CONTINUE USE OF INCENTIVE SPIROMETER UNTIL PRESURGERY LEVEL OF ACTIVITY ACHIEVED, TO CONTINUE PREMEDICATING PRIOR TO PHYSICAL THERAPY OR PERIODS OF HIGH ACTIVITY, TO CONTINUE WITH FOOT FLEXION AND EXTENSION EXERCISES, TO INCREASE AMBULATION AND HYDRATE. PATIENT AND SPOUSE VERBALIZED UNDERSTANDING. NO ADDITIONAL QUESTIONS OR CONCERNS. 1505 REPORT TO PRIMARY NURSE. PATIENT'S PHARMACY THROUGH THE [facility] AND CLOSED AT 1630. PRIMARY NURSE ACKNOWLEDGED COMMUNICATION.
--- NOTE | 2025-02-27 15:57 | NUR ---
PT sitting in bed w/ eyes open A&Ox4 able to make needs known, denies pain or discomfort. Discharge instructions given to PT and family @ bedside written and verbally. I.V. removed intact w/o complications. PT escorted to POV via WC by APIGEE DEVELOPER w/o complications.
--- NOTE | 2025-03-01 13:29 | DS ---
Discharge Summary Hospital Course Summary: The patient was admitted to the hospital postoperatively on 02/26/2025 after undergoing total knee arthroplasty. They did well with routine postoperative pain control. They worked well with physical therapy. They developed some acute blood loss anemia but remained asymptomatic. The hospital course was ot herwise uncomplicated. They were subsequently able to be discharged on postoperative day 2 once discharge arrangements were made with physical therapy. Bicycle Service Technician(s): None Procedure(s): Left total knee arthroplasty, 02/26/2025 Assessment/Plan: ASSESSMENT: Status post left total knee arthroplasty doing well Asymptomatic acute blood loss anemia PLAN: see Discharge instructions Discharge Instructions: Begin working with Home Health physical therapy. Dressing may be removed 02/28/25 and left open to air. Showers ok allowing soap and water to run over the wound. Pat dry. Do not submerge wound in tub/pool. Do not apply ointments. Do not apply Betadine. Do not apply peroxide. Ice packs to decrease pain/swelling. Prescriptions have been sent to the pharmacy: *Poyen 5/325mg 1-2 tab every 6 hours as needed for severe pain. (please call for refills) Cyclobenzaprine 5mg 1 tab every 8 hours as needed for muscle spasm pain. Gabapentin 100mg 1 tab every 8 hours (may discontinue if drowsy). Colace 100mg 1 tab orally twice a day as needed for constipation. Aspirin 325mg twice a day for 30 days to prevent blood clots. Follow up visit scheduled on 03/20/2025 at 8:30 a.m. at [facility]. Home Medications: Active Scripts Docusate Sodium (Colace) 100 Mg Capsule, 1 CAP PO BID for 30 Days, #60 CAP 0 Refills Prov:PEYTON VARGAS MD 02/27/25 Hydrocodone/Acetaminophen (Hydrocodon-Acetaminophen 5-325) 5 Mg-325 Mg Tablet, 1-2 TAB PO Q6HPRN PRN for postop pain, #56 TAB 0 Refills Prov:PEYTON VARGAS MD 02/27/25 Cyclobenzaprine HCl (Cyclobenzaprine HCl) 10 Mg Tablet, 5 MG PO Q8H PRN for MUSCLE SPASMS, #45 TAB 0 Refills Prov:PEYTON VARGAS MD 02/27/25 Gabapentin (Neurontin) 100 Mg Capsule, 100 MG PO TID, #90 CAP 0 Refills Prov:PEYTON VARGAS MD 02/27/25 Aspirin (Aspirin EC) 325 Mg Tablet., 325 MG PO BID, #60 TAB 0 Refills Prov:PEYTON VARGAS MD 02/27/25 Reported Medications Omeprazole (Omeprazole) 20 Mg Tab.rap., 20 MG PO AM 08/01/24 Discontinued Scripts Docusate Sodium (Colace) 100 Mg Capsule, 1 CAP PO BID for 30 Days, #60 CAP 0 Refills Prov:PEYTON VARGAS MD 08/08/24 Hydrocodone/Acetaminophen (Hydrocodon-Acetaminophen 5-325) 5 Mg-325 Mg Tablet, 1-2 TAB PO Q4H PRN for MODERATE/SEVERE PAIN LEVEL, #56 TAB 0 Refills Prov:PEYTON VARGAS MD 08/08/24 Gabapentin (Neurontin) 100 Mg Capsule, 100 MG PO TID, #90 CAP 0 Refills Prov:PEYTON VARGAS MD 08/08/24 Cyclobenzaprine HCl (Cyclobenzaprine HCl) 10 Mg Tablet, 5 MG PO Q8H PRN for MUSCLE SPASMS, #90 TAB 0 Refills Prov:PEYTON VARGAS MD 08/08/24 Aspirin (Aspirin EC) 325 Mg Tablet., 325 MG PO BID, #60 TAB 0 Refills Prov:PEYTON VARGAS MD 08/08/24 PEYTON VARGAS MD Mar 01, 2025 13:28
== END 2025-02-27 15:57 | disposition home health service (06) ==
LOC: DAH 08:10 → DAHIP 08:11 → DAH 08:11 → 4DH 14:40
PROVIDERS: ADMIT Student in an Organized Health Care Education/Training Program; ATTEND Student in an Organized Health Care Education/Training Program
DX: M17.11 Unilateral primary osteoarthritis, right knee (principal); M25.561 Pain in right knee; K21.9 Gastro-esophageal reflux disease without esophagitis; D62 Acute posthemorrhagic anemia; Z79.899 Other long term (current) drug therapy; Z98.890 Other specified postprocedural states
CPT/HCPCS: 84134; 86140; 36415 ×2; 93005; 87641; 27447; 96374; 96375; 64447; 73560; 97161; 97116 ×3; 97530 ×7; 96376; 80048; 85027; G0378 ×27; A4663; J7120 ×2; J3010 ×2; J3490 ×7; J2250; J2704; J2405; J1885 ×3; J2710; J1100; J2795 ×2; J2371; J0690 ×3; C1713 ×2; C1776 ×2; A4649 ×2; A4930; A6255; A4215; A4223 ×2; A4213; A4222; A4221; A4216